=== PATIENT | male | born 1980 | race Caucasian/White ===

== ENCOUNTER 2017-12-18 22:11 | Emergency (ER) | payer OTHER ==
[~2017-12-18] VITALS: Ht 190.5 cm; Wt 93.0 kg
[2017-12-18 22:26] VITALS: BP 155/82
== END 2017-12-19 02:11 | disposition home or self-care (01) ==
LOC: EME 22:11
DX: S51.852A Open bite of left forearm, initial encounter (principal); W54.0XXA Bitten by dog, initial encounter; K21.9 Gastro-esophageal reflux disease without esophagitis; F17.200 Nicotine dependence, unspecified, uncomplicated
CPT/HCPCS: 99281; 99284